=== PATIENT | male | born 1970 | race Caucasian/White ===

== ENCOUNTER 2017-04-16 09:22 | Inpatient (IN) | payer BC ==
[2017-04-13 08:42] VITALS: BMI 46.6
[2017-04-16] MEDS ORDERED: fentaNYL CITRATE 250 MCG/5 ML VIAL ONE ×2 (15:01)
[2017-04-16] MEDS ORDERED: SUCCINYLCHOLINE CHLORIDE 200 MG/10 ML VIAL ONE (15:01)
[2017-04-16] MEDS ORDERED: ROCURONIUM BROMIDE 50 MG/5 ML VIAL ONE (15:02)
[2017-04-16] MEDS ORDERED: MIDAZOLAM HCL 2 MG/2 ML SINGLE DOSE VIAL ONE ×4 (15:02→16:11)
[2017-04-16] MEDS ORDERED: PROPOFOL 20 ML ONE ×6 (15:06→16:38)
[2017-04-16] MEDS ORDERED: SODIUM CHLORIDE 0.9% P/F 10 ML VIAL IJ ONE ×2 (16:06→17:00)
[2017-04-16] MEDS ORDERED: ceFAZolin SODIUM 1 GM VIAL ONE (16:06)
[2017-04-16] MEDS ORDERED: THROMBIN (BOVINE) 5,000 UNIT VIAL TP ONE ×2 (16:16→16:23)
[2017-04-16] MEDS ORDERED: LIDOCAINE HCL/PF 2% SDV 5ML VIAL ONE (16:35)
[2017-04-16] MEDS ORDERED: DEXAMETHASONE SOD PHOSPHATE 4 MG/1 ML VIAL ONE (16:52)
[2017-04-16] MEDS ORDERED: FLUMAZENIL 0.5 MG/5 ML VIAL ONE (17:00)
[2017-04-16] MEDS ORDERED: NALOXONE HCL 0.4 MG/ML VIAL ONE (17:00)
[2017-04-16] MEDS ORDERED: CYCLOBENZAPRINE HCL 10 MG TABLET (FP) PO PRN (17:57)
[2017-04-16] MEDS ORDERED: ACETAMINOPHEN 325 MG TABLET (FP) PO PRN (17:57)
--- NOTE | 2017-04-16 17:57 | PN ---
Progress Note (short form) - Note Progress Note: Case cancelled. Pt. positioned supine on the operating room table. General anaesthesia administered. Upon assessment of the anterior cervical spine for incision placement planning, the patient's morbid obesity compromised the potential to safely perform the planned procedure. The patient was awoken and transferred to recovery room in stable condition. A long conversation was held with the patient and OR and nursing staff to explain the difficulty of the situation. The patient is myelopathic and has been battling progressive neurological decline. While I indicated the patient for surgery, believing that I could safely perform an anterior surgical approach to the cervical spine, upon positioning on the OR table, this was not the case. His morbid obesity compromised my surgical plan and the patient's safety. I have apologized to the hospital and to the patient.
[2017-04-16 19:16] VITALS: PULSE 62
[2017-04-16 19:18] VITALS: BP 134/82; TEMP 98.5
[2017-04-16] MEDS ORDERED: NAPROXEN 500 MG TABLET (FP) PO SCH (22:00)
== END 2017-04-16 19:40 | disposition home or self-care (01) | DRG 552 ==
LOC: JSAMEDAYSX 09:22 → EDSTATUS 11:00
PROVIDERS: ADMIT Orthopaedic Surgery Orthopaedic Surgery of the Spine; ATTEND Orthopaedic Surgery Orthopaedic Surgery of the Spine
DX: M47.12 Other spondylosis with myelopathy, cervical region (principal); Z68.42 Body mass index [BMI] 45.0-49.9, adult; R53.1 Weakness; E66.01 Morbid (severe) obesity due to excess calories; G47.39 Other sleep apnea; Z53.8 Procedure and treatment not carried out for other reasons; Z87.891 Personal history of nicotine dependence
CPT/HCPCS: 86850; 86900; 86901; 94760

== ENCOUNTER 2017-09-03 09:04 | Inpatient (IN) | payer BC ==
[2017-09-03] MEDS ORDERED: fentaNYL CITRATE 250 MCG/5 ML VIAL ONE ×2 (16:10→21:53)
[2017-09-03] MEDS ORDERED: TRANEXAMIC ACID 1000 MG/10 ML VIAL ONE (16:11)
[2017-09-03] MEDS ORDERED: LIDOCAINE HCL/PF 2% SDV 5ML VIAL ONE (16:11)
[2017-09-03] MEDS ORDERED: PROPOFOL 20 ML ONE ×22 (16:11→19:37)
[2017-09-03] MEDS ORDERED: VANCOMYCIN 1,000 MG VIAL (RESTRICTED TO ID ONLY) ONE (16:11)
[2017-09-03] MEDS ORDERED: ONDANSETRON 4 MG/2 ML VIAL ONE ×2 (16:11→20:20)
[2017-09-03] MEDS ORDERED: ceFAZolin SODIUM 1 GM VIAL ONE ×3 (16:11→22:29)
[2017-09-03] MEDS ORDERED: MIDAZOLAM HCL 2 MG/2 ML SINGLE DOSE VIAL ONE (16:11)
[2017-09-03] MEDS ORDERED: DEXAMETHASONE SOD PHOSPHATE 4 MG/1 ML VIAL ONE (16:11)
[2017-09-03] MEDS ORDERED: SUCCINYLCHOLINE CHLORIDE 200 MG/10 ML VIAL ONE (16:11)
[2017-09-03] MEDS ORDERED: HEPARIN NA (PORCINE) 5,000 UNITS/ML 1ML VIAL ONE (16:37)
[2017-09-03] MEDS ORDERED: VANCOMYCIN 1,000 MG VIAL (RESTRICTED TO ID ONLY) IVPB ONE (16:40)
[2017-09-03] MEDS ORDERED: THROMBIN (BOVINE) 5,000 UNIT VIAL TP ONE ×2 (17:04→21:03)
[2017-09-03] MEDS ORDERED: ONDANSETRON 4 MG/2 ML VIAL IVPUSH PRN ×2 (17:31→20:50)
[2017-09-03] MEDS ORDERED: ACETAMINOPHEN 325 MG TABLET (FP) PO PRN (17:34)
[2017-09-03] MEDS ORDERED: LACTATED RINGERS SOLUTION 1,000 ML IV SCH (17:45)
[2017-09-03] MEDS ORDERED: ceFAZolin SODIUM 1 GM VIAL IVPB ONE (18:28)
--- NOTE | 2017-09-03 20:39 | OP ---
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 C5 Corpectomy. 2. C4 and C6 Partial corpectomy. 3. C4/5 C5/6 Discectomy. 4. C4to C6 Optimesh cage with autologous bone graft. 5. C4to C6 Plating Slimplicity Surgeon: Burt Levy Publicity Consultant: Bertin Levy Anesthesiologist/PHYSICAL THERAPY AIDES TEACHER: Heath Tse Anesthesia: General Specimens Removed: Disc C4/5 C5/6 Operative Report Dictated: Yes
[2017-09-03] MEDS ORDERED: CYCLOBENZAPRINE HCL 10 MG TABLET (FP) PO PRN (20:41)
--- NOTE | 2017-09-03 20:50 | PN ---
Progress Note (short form) - Note Progress Note: 47M s/p C5 corpectomy & C4-C7 anterior cervical decompression & instrumented fusion POD #0. -Admit to ICU for airway monitoring. -Pain control. -DVT PPx: Mechanical only (SCD's, LOIS's). -Incentive spirometry. -Elevate head of bed 60 degrees or as tolerated. -Liquid diet; advance as tolerated (Soft then regular). -Miranda-op antibiotics. -PT/OT/Rehab, OOB. -WBAT B/L UE & LE. -Care per medical hospitalist team. -d/c Jacqueline tomorrow morning. -Will follow. -Discharge planning. Burt Levy MD (Orthopaedic Surgery).
[2017-09-03] MEDS ORDERED: PROPOFOL 1,000,000 MCG/100 ML VIAL ONE (21:53)
[2017-09-03] MEDS ORDERED: ceFAZolin 2 GRAM PREMIX BAG IVPB SCH (22:00)
[2017-09-03] MEDS: FENTANYL INJECTION 500 MCG in DEXTROSE 5%-WATER - 90 ML IVPB SCH (22:05)
[2017-09-03] MEDS ORDERED: PROPOFOL 1,000,000 MCG/100 ML VIAL IVPB SCH (23:00)
--- NOTE | 2017-09-03 23:33 | CONSULT ---
Consult Consult Specialty:: Critical Care/Pulmonary Medicine Reason for Consultation:: s/p C5 corpectomy & C4-C7 ACDF - History of Present Illness Chief Complaint: neck pain History of Present Illness: Mr. Zamudio is a 47yo male s/p C5 corpectomy & C4-C7 ACDF, POD #0, who in PACU was unable to be extubated, transferred to ICU intubated for monitoring. Briefly, Mr. Zamudio had C4/5, C5/6, C5 stenosis with spondylogenic myelopathy. He underwent C5 corpectomy, C4 & C6 partial corpectomy, C4/5 & C5/6 discectomy, C4 to C6 Optimesh cage with autologous bone graft, and C4-6 plating Slimplicity. He is now POD #0. In the PACU, sedation was weaned off but as per report, patient did not wake up enough to allow for extubation. Thereafter, he was found to be agitated and resedated on Propofol and Fentanyl. Transfered to ICU for further monitoring. Arrived to ICU intubated with initial vitals HR 61, BP 130/75, RR 20, and O2sat 96%. Sedated on Fent gtt @ 40mcg/hr and Prop gtt at 40mcg/kg/min. Initial vent settings SIMV 12/500/60/5. As per report, anesthesia requested patient remain on SIMV. IBW calculated ~70k. Vent adjusted to 6cc/kg = TV 420. Decreased Propofol gtt for goal RAAS 0. Previous CXR reviewed - ETT high so advance 2cm with repeat CXR pending. Plan for hopeful extubation in am. - History Source History Provided By: Medical Record Limitations to Obtaining History: Intubated - Alcohol/Substance Use Hx Alcohol Use: No - Smoking History Smoking history: Never smoked Home Medications - Allergies Allergies/Adverse Reactions: Allergies Allergy/AdvReac Type Severity Reaction Status Date / Time hydrocodone AdvReac Intermediate Nausea Verified 09/03/17 10:11 oxycodone AdvReac Intermediate Nausea Verified 09/03/17 10:11 - Home Medications Home Medications: Ambulatory Orders Cyclobenzaprine HCl [Flexeril 10 mg] 10 mg PO BID PRN 04/13/17 Naproxen [Naprosyn -] 500 mg PO BID 04/13/17 Acetaminophen [Tylenol] 650 mg PO PRN PRN 04/16/17 Loratadine [Claritin] 10 mg PO PRN PRN 09/03/17 Review of Systems Unable to obtain ROS, reason: 2/2 intubation & sedated Physical Exam Vital Signs: Vital Signs Temperature 97.6 F 09/03/17 21:41 Pulse Rate 61 09/03/17 23:00 Respiratory Rate 20 09/03/17 23:00 Blood Pressure 118/66 09/03/17 23:00 O2 Sat by Pulse Oximetry (%) 98 09/03/17 23:00 Constitutional: Yes: Obese Eyes: Yes: Conjunctiva Clear, PERRL (near pinpoint, +reactive bilaterally) HENT: Yes: Other (intubated) Neck: Yes: Other (anterior neck dsg c/d/i) Cardiovascular: Yes: Regular Rate and Rhythm Respiratory: Yes: CTA Bilaterally Gastrointestinal: Yes: Normal Bowel Sounds, Soft, Abdomen, Obese Renal/: Yes: Falcon Present Edema: No Peripheral Pulses WNL: Yes Wound/Incision: Yes: Clean/Dry Neurological: Yes: Other (sedated) Imaging - Results Chest X-ray: Image Reviewed (CXR 09/03 @ 2247: ETT too high - advanced 2cm with repeat CXR pending. ? LLL infiltrate) Assessment/Plan Mr. Zamudio is a 47yo male s/p C5 corpectomy & C4-C7 ACDF, POD #0, who in PACU was unable to be extubated, transferred to ICU intubated for monitoring. Plan: -Admitted to ICU for close monitoring and vent weaning -Close neurovascular monitoring -Plan for hopeful extubation in am -Wean sedation for RASS goal 0 -Adjusted vent for TVs @ 6cc/kg -Advanced ETT, will f/u repeat CXR -Fent gtt and IVPs as needed for pain control -Will transition to po opioids once extubated -NPO for now -D/c falcon once extubated -DVT ppx: venodynes, hold off on SQ Hep -GI ppx: not indicated unless ongoing resp failure Jennifer Dawson ACNP-BC CC time: 30minutes
[2017-09-04] MEDS: ACETAMINOPHEN 325 MG TABLET (FP) PO SCH ×4 (00:34→18:03)
[2017-09-04] MEDS: CEFAZOLIN 2 GM/D5W 2 GM/50 ML ML IVPB SCH ×3 (00:34→08:45)
[2017-09-04] MEDS: DOCUSATE SODIUM 100 MG CAPSULE (FP) PO SCH ×3 (00:35→21:13)
[2017-09-04] MEDS: FENTANYL INJECTION 500 MCG in DEXTROSE 5%-WATER - 90 ML IVPB SCH (00:35)
[2017-09-04] MEDS: LACTATED RINGERS SOLUTION 1,000 ML IV SCH ×3 (00:36→21:12)
[2017-09-04] MEDS ORDERED: fentaNYL CITRATE 250 MCG/5 ML VIAL ONE (01:23)
[2017-09-04 06:26] LABS: HEMATOCRIT 39.6 % (35.4-49); HEMOGLOBIN 13.9 GM/dL (11.7-16.9); MCH 31.2 pg (25.7-33.7); MCHC 35.2 g/dl (32.0-35.9); MEAN CELL VOLUME 88.7 fl (80-96); MEAN PLT VOLUME 8.3 fl (7.5-11.1); PLATELET COUNT 191 K/MM3 (134-434); RBC 4.47 M/mm3 (4.00-5.60); RDW 12.3 % (11.9-15.9); WHITE BLOOD COUNT 8.6 K/mm3 (4.0-10.0)
[2017-09-04 06:49] LABS: ANION GAP 5 (8-16); BLOOD UREA NITROGEN 14 mg/dL (7-18); CALCIUM 8.1 mg/dL (8.5-10.1); CHLORIDE 107 mmol/L (98-107); CO2 30 mmol/L (21-32); GLUCOSE,RANDOM 140 mg/dL (74-106); POTASSIUM 4.7 mmol/L (3.5-5.1); SODIUM 142 mmol/L (136-145)
--- NOTE | 2017-09-04 08:58 | PN ---
Progress Note, Physician - Current Medication List Current Medications: Active Medications Acetaminophen (Tylenol -) 650 mg PO Q4H PRN PRN Reason: FEVER Acetaminophen (Tylenol -) 650 mg PO Q6HPO [facility] Last Admin: 09/04/17 06:08 Dose: Not Given Cyclobenzaprine HCl (Flexeril -) 10 mg PO BID PRN PRN Reason: PAIN Docusate Sodium (Colace -) 100 mg PO BID [facility] Last Admin: 09/04/17 00:35 Dose: Not Given Hydromorphone HCl (Dilaudid -) 2 mg PO Q4H PRN PRN Reason: PAIN LEVEL 1-5 Hydromorphone HCl (Dilaudid -) 4 mg PO Q4H PRN PRN Reason: PAIN LEVEL 6-10 Lactated Ringer's (Lactated Ringers Solution) 1,000 mls @ 125 mls/hr IV ASDIR [facility] Last Admin: 09/04/17 08:47 Dose: 125 mls/hr Cefazolin Sodium/Dextrose (Ancef 2 Gm Premixed Ivpb -) 2 gm in 50 mls @ 100 mls /hr IVPB Q6H-IV [facility] Stop: 09/04/17 09:29 Last Admin: 09/04/17 08:45 Dose: 100 mls/hr Propofol (Diprivan -) 1,000,000 mcg in 100 mls @ 4.286 mls/hr IVPB TITR [facility]; 5 MCG/KG/MIN PRN Reason: Protocol Last Titration: 09/04/17 01:00 Dose: 20 mcg/kg/min, 17.146 mls/hr Fentanyl 500 mcg/ Dextrose 100 mls @ 5 mls/hr IVPB TITR [facility]; 25 MCG/HR PRN Reason: Protocol Stop: 09/06/17 22:59 Last Admin: 09/04/17 00:35 Dose: 5 mls/hr Lorazepam (Ativan Injection -) 1 mg IVPUSH TID PRN PRN Reason: BACK PAIN Ondansetron HCl (Zofran Injection) 4 mg IVPUSH Q6H PRN PRN Reason: NAUSEA AND/OR VOMITING - Objective Vital Signs: Vital Signs Temperature 98.7 F 09/04/17 06:00 Pulse Rate 51 L 09/04/17 06:00 Respiratory Rate 16 09/04/17 08:00 Blood Pressure 108/64 09/04/17 08:00 O2 Sat by Pulse Oximetry (%) 93 L 09/04/17 00:06 Constitutional: Yes: Obese Eyes: Yes: EOM Intact HENT: Yes: Atraumatic, Normocephalic Labs: CBC, BMP 09/04/17 05:55 09/04/17 05:55
--- NOTE | 2017-09-04 10:44 | OP ---
DATE OF OPERATION: 09/03/2017 SURGEON: Burt Levy MD PROGRAMMING DIRECTOR: Bertin Levy MD PREOPERATIVE DIAGNOSIS: C4-C5, C5 and C5-C6 spinal stenosis with cervical spondylogenic myelopathy and kyphosis. POSTOPERATIVE DIAGNOSIS: C4-C5, C5 and C5-C6 spinal stenosis with cervical spondylogenic myelopathy and kyphosis. OPERATION PERFORMED: 1. C5 corpectomy. 2. Diskectomy C4-C5 and C5-C6. 3. Partial corpectomy C4, partial corpectomy C6. 4. Anterior arthrodesis with autologous bone graft. 5. OptiMesh cage. 6. Anterior plating (Precision instrumentation). ANESTHESIA: General. ANTIBIOTICS GIVEN: Kefzol 2 g, vancomycin 1 g and Decadron 10 mg given preoperatively. DESCRIPTION OF PROCEDURE: A time-out was called. Imaging was evaluated for intraoperative evaluation. A complex case. Difficult because of the patient's size, BMI over 40, but indication for surgery due to progressive neurological weakness and cervical spondylogenic myelopathy. With the patient in the supine position, a large bolster was placed behind the scapulae. The shoulders were taped and the neck extended. Prior to this, neuromonitoring numbers were run through him and found at this level to be well maintained. After positioning the patient into extension, there was no change in the numerical numbers noted. The incision was made at the cricothyroid interval. The platysma was transected. The anterior jugular veins were dissected and ligated with number 1 Vicryl. These were large veins. Because of the fat thickness of the neck, the investing nerve fascia was opened with finger dissection. The planes between the viscera and vessels were identified on the right-hand side. With finger dissection, the soft tissue visceral elements were retracted from right to left. A Cloward handheld retractor was placed on either side of the developed plane, where the longus coli was readily visible. A 90-bend, 18-gauge needle was placed in the C4-C5 disk. An x-ray was taken to verify the levels for dissection. A unipolar Bovie was utilized to clear the longus coli off the vertebral bodies. The disks at C4-C5 and C5-C6 were transected and removed, that is, ligated off the bone bed. Using curettes, the disk material was taken off the interdisk space. A matchstick rene tip florencia was utilized to carve 2 channels into the vertebral body of C5 and then Lexsell rongeurs delivered the bone left behind between the 2 channels for the autologous bone grafting to be inserted into the cage. Using numbers 1, 2 and 3 Kerrison rongeurs as well as a 40-mm rough rene tipped florencia, the endplates were prepared at C4 and the endplates at C6 likewise prepared. This necessitated a partial corpectomy at the C4-C5 and C6 levels to also ensure that the undercutting of the endplate and the disk brought about complete decompression accordingly. CellSaver blood was utilized. There was extensive bleeding of the vertebral bodies. The amount of blood removed was about 300 mL was lost and about 120 mL in the CellSaver was given back to the patient. Once this had been performed and all hemostasis was achieved and a complete decompression of the cord, it must be noted that the dura was actually adherent to some parts of the cord and dissected free of the cord with a [place], and lifting the actual posterior longitudinal ligament with a pituitary rongeur, a plane was created and the entire posterior longitudinal ligament was resected, thus to complete freeing of the cord. Extensive disk prolapse was noted, particularly at C4-C5. An OptiMesh cage was fitted into the space. This was measured using osteotomes to help gauge the exact length of the interbody space. The cage was tamped into position. Two [place] pins had been placed, one in C4 and one in C6. Gentle distraction of the space. Once the cage had been inserted, being solidly inserted at the level, the [place] pins were removed and the holes in the bone filled with bone wax. A size 37 slim-fit Precision plate was inserted. The screws were 14-mm screws, self tapping, fixed into the C4 and C6 vertebral bodies. The C6 screws were fixed into the endplate bone, giving the best fixation and position. The wounds were thoroughly lavaged. The locking devices were placed onto the screws. Verification with lateral and AP x-rays revealed excellent positioning of the plate. Closure of the investing layer fascia with 2-0 Vicryl, subcutaneous with 2-0 Vicryl, and the skin with 0 Monocryl and Steri-Strips. Overall, an extremely difficult case because of the size of the patient, the depth of the wound and the adherence of the posterior longitudinal ligament to the dura, necessitating meticulous freeing of this, this was hard thickened tissue that if left behind would have restenosed the entire canal and this operation would have been a failure. Overall, the patient has done well. No neuromonitoring abnormalities and no excessive bone loss. MD PARAG Mariee/[id number]
--- NOTE | 2017-09-04 11:24 | PN ---
Progress Note (short form) - Note Progress Note: Subjective: The patient was seen and examined at the bedside, he has complaints of feeling uncomfortable with bed position. He is also reporting pain to his neck Extubated this morning Current Medications Generic Name Dose Route Start Last Admin Trade Name Freq PRN Reason Stop Dose Admin Acetaminophen 650 mg 09/03/17 17:34 Tylenol - PO Q4H PRN FEVER Acetaminophen 650 mg 09/03/17 21:00 09/04/17 06:08 Tylenol - PO Not Given Q6HPO [facility] Cyclobenzaprine HCl 10 mg 09/03/17 20:41 Flexeril - PO BID PRN PAIN Docusate Sodium 100 mg 09/03/17 22:00 09/04/17 10:28 Colace - PO Not Given BID [facility] Hydromorphone HCl 2 mg 09/03/17 17:32 Dilaudid - PO Q4H PRN PAIN LEVEL 1-5 Hydromorphone HCl 4 mg 09/03/17 17:32 Dilaudid - PO Q4H PRN PAIN LEVEL 6-10 Lactated Ringer's 1,000 mls @ 125 mls/hr 09/03/17 21:00 09/04/17 08:47 Lactated Ringers Solution IV 125 mls/hr ASDIR [facility] Administration Propofol 1,000,000 mcg in 100 mls @ 4.286 mls/hr 09/03/17 23:00 09/04/17 01: 00 Diprivan - IVPB 20 mcg/kg/min TITR [facility] 17.146 mls/hr Protocol Titration 5 MCG/KG/MIN Fentanyl 500 mcg/ Dextrose 100 mls @ 5 mls/hr 09/03/17 23:00 09/04/17 00:35 IVPB 09/06/17 22:59 5 mls/hr TITR [facility] Administration Protocol 25 MCG/HR Lorazepam 1 mg 09/03/17 20:54 Ativan Injection - IVPUSH TID PRN BACK PAIN Ondansetron HCl 4 mg 09/03/17 17:31 Zofran Injection IVPUSH Q6H PRN NAUSEA AND/OR VOMITING Objective: Vital Signs Period Temp Pulse Resp BP Sys/Heard Pulse Ox Last 24 Hr 97.6 F-99.2 F 48-87 16-26 108-144/64-95 91-100 Physical Exam: General: Morbidly obese, NAD, A&Ox3 HEENT: Anterior neck dressing, c/d/i Lungs: CTA bilaterally anteriorly Heart: RRR, S1S2 Abd: Soft, non-tender, non-distended Ext: Warm, well-perfused CBCD WBC 8.6 K/mm3 (4.0-10.0) 09/04/17 05:55 RBC 4.47 M/mm3 (4.00-5.60) 09/04/17 05:55 Hgb 13.9 GM/dL (11.7-16.9) 09/04/17 05:55 Hct 39.6 % (35.4-49) 09/04/17 05:55 MCV 88.7 fl (80-96) 09/04/17 05:55 MCHC 35.2 g/dl (32.0-35.9) 09/04/17 05:55 RDW 12.3 % (11.9-15.9) 09/04/17 05:55 Plt Count 191 K/MM3 (134-434) 09/04/17 05:55 MPV 8.3 fl (7.5-11.1) 09/04/17 05:55 CMP Sodium 142 mmol/L (136-145) 09/04/17 05:55 Potassium 4.7 mmol/L (3.5-5.1) 09/04/17 05:55 Chloride 107 mmol/L (98-107) 09/04/17 05:55 Carbon Dioxide 30 mmol/L (21-32) 09/04/17 05:55 Anion Gap 5 (8-16) L 09/04/17 05:55 BUN 14 mg/dL (7-18) 09/04/17 05:55 Creatinine 1.0 mg/dL (0.7-1.3) 09/04/17 05:55 Random Glucose 140 mg/dL (74-106) H 09/04/17 05:55 Calcium 8.1 mg/dL (8.5-10.1) L 09/04/17 05:55 Assessment: This is a 47 year old male with PMHx of obesity s/p sleeve gastroplasty, hernia repair, cervical spinal stenosis, who is s/p spinal surgery on 09/03/17 Plan: 1) S/p C5 corpectomy. C4 and C6 partial corpectomy, C4/5 C5/6 discectomy, C4 to C6 optimesh cage with autologous bone graft, C4 to C6 plating slimplicity - POD #1 - Extubated this AM, doing well - Pain control - Start liquid diet and advance as tolerated - Received Cefazolin post-op - PT - Elevate head of bed 60 degrees - Incentive spirometer - Appreciate ortho note from 09/03/17 2) F/E/N: - CL diet, advance as tolerated - Monitor electrolytes 3) Prophylaxis: - SCDs only, no chemical DVT prophylaxis per ortho - PT - Incentive spirometer 4) Dispo - Requires continue inpatient care CODE STATUS: FULL CODE Visit type - Emergency Visit Emergency Visit: Yes ED Registration Date: 09/03/17 Care time: The patient presented to the Emergency Department on the above date and was hospitalized for further evaluation of their emergent condition. - New Patient This patient is new to me today: Yes Date on this admission: 09/04/17 - Critical Care Critical Care patient: No
--- NOTE | 2017-09-04 12:02 | PN ---
Physical Exam: SUBJECTIVE: Patient awake, alert and oriented, c/o sore throat, denies any chest pain, shortness of breath, abdominal pain. OBJECTIVE: General: Obese, alert, A&O x3 CV: S1/S2, RRR, no M/R/G Respiratory: B/L Abdomen: soft, non-tender, (+) bowel sounds Extremities: 2+ DP pulses, no edema, cords Vital Signs Period Temp Pulse Resp BP Sys/Heard Pulse Ox Last 24 Hr 97.6 F-99.2 F 48-87 16-26 108-144/64-95 91-100 Laboratory Results - last 24 hr 09/04/17 09/04/17 05:55 05:55 WBC 8.6 RBC 4.47 Hgb 13.9 Hct 39.6 MCV 88.7 MCH 31.2 MCHC 35.2 RDW 12.3 Plt Count 191 MPV 8.3 Sodium 142 Potassium 4.7 Chloride 107 Carbon Dioxide 30 Anion Gap 5 L BUN 14 Creatinine 1.0 Random Glucose 140 H Calcium 8.1 L Active Medications Generic Name Dose Route Start Last Admin Trade Name Freq PRN Reason Stop Dose Admin Acetaminophen 650 mg 09/03/17 17:34 Tylenol - PO Q4H PRN FEVER Acetaminophen 650 mg 09/03/17 21:00 09/04/17 06:08 Tylenol - PO Not Given Q6HPO [facility] Cyclobenzaprine HCl 10 mg 09/03/17 20:41 Flexeril - PO BID PRN PAIN Docusate Sodium 100 mg 09/03/17 22:00 09/04/17 10:28 Colace - PO Not Given BID [facility] Hydromorphone HCl 2 mg 09/03/17 17:32 Dilaudid - PO Q4H PRN PAIN LEVEL 1-5 Hydromorphone HCl 4 mg 09/03/17 17:32 Dilaudid - PO Q4H PRN PAIN LEVEL 6-10 Lactated Ringer's 1,000 mls @ 125 mls/hr 09/03/17 21:00 09/04/17 08:47 Lactated Ringers Solution IV 125 mls/hr ASDIR [facility] Administration Fentanyl 500 mcg/ Dextrose 100 mls @ 5 mls/hr 09/03/17 23:00 09/04/17 00:35 IVPB 09/06/17 22:59 5 mls/hr TITR [facility] Administration Protocol 25 MCG/HR Lorazepam 1 mg 09/03/17 20:54 Ativan Injection - IVPUSH TID PRN BACK PAIN Ondansetron HCl 4 mg 09/03/17 17:31 Zofran Injection IVPUSH Q6H PRN NAUSEA AND/OR VOMITING ASSESSMENT/PLAN: 47 year old male with a PMH of MARCELO, POD#1 for C5 corpectomy and C4-C7 ACDF. RESPIRATORY: - Extubated today (09/04) - SpO2 96% on RA - CLTA B/L - CPAP machine w/patient FEN/PPZ - LR @ 125 mls/hr - Zofran PRN - Colace for bowel regimen - Phillips d/c today (09/04) DISPO -stable for transfer to inpatient medicine floor or discharge as per surgery and primary Visit type - Emergency Visit Emergency Visit: No - New Patient This patient is new to me today: Yes Date on this admission: 09/04/17 - Critical Care Critical Care patient: No
--- NOTE | 2017-09-04 12:39 | PN ---
Teaching Attending Note Name of Resident: Coty Esteban ATTENDING PHYSICIAN STATEMENT I saw and evaluated the patient. I reviewed the resident's note and discussed the case with the resident. I agree with the resident's findings and plan as documented. SUBJECTIVE: Patient seen and examined in the ICU. Awake and alert on AC Mode of vent. 40% FiO2. No pressors. Intake & Output 09/01/17 09/02/17 09/03/17 09/04/17 23:59 23:59 23:59 23:59 Intake Total 1925 1870 Output Total 850 400 Balance 1075 1470 Weight 324 lb 7 oz Last Vital Signs Temp Pulse Resp BP Pulse Ox 98.6 F 62 18 135/83 96 09/04/17 10:00 09/04/17 12:07 09/04/17 12:07 09/04/17 12:07 09/04/17 11:02 Active Medications Acetaminophen (Tylenol -) 650 mg PO Q4H PRN PRN Reason: FEVER Acetaminophen (Tylenol -) 650 mg PO Q6HPO [facility] Last Admin: 09/04/17 06:08 Dose: Not Given Cyclobenzaprine HCl (Flexeril -) 10 mg PO BID PRN PRN Reason: PAIN Docusate Sodium (Colace -) 100 mg PO BID [facility] Last Admin: 09/04/17 10:28 Dose: Not Given Hydromorphone HCl (Dilaudid -) 2 mg PO Q4H PRN PRN Reason: PAIN LEVEL 1-5 Hydromorphone HCl (Dilaudid -) 4 mg PO Q4H PRN PRN Reason: PAIN LEVEL 6-10 Lactated Ringer's (Lactated Ringers Solution) 1,000 mls @ 125 mls/hr IV ASDIR [facility] Last Admin: 09/04/17 08:47 Dose: 125 mls/hr Fentanyl 500 mcg/ Dextrose 100 mls @ 5 mls/hr IVPB TITR [facility]; 25 MCG/HR PRN Reason: Protocol Stop: 09/06/17 22:59 Last Admin: 09/04/17 00:35 Dose: 5 mls/hr Lorazepam (Ativan Injection -) 1 mg IVPUSH TID PRN PRN Reason: BACK PAIN Ondansetron HCl (Zofran Injection) 4 mg IVPUSH Q6H PRN PRN Reason: NAUSEA AND/OR VOMITING Constitutional: Yes: Intubated, awake, and following commands Eyes: Yes: Conjunctiva Clear, PERRL HENT: Yes: Other (intubated) Neck: Yes: Other (anterior neck dsg c/d/i) Cardiovascular: Yes: Regular Rate and Rhythm Respiratory: Yes: CTA Bilaterally Gastrointestinal: Yes: Normal Bowel Sounds, Soft, Abdomen, Obese Renal/: Yes: Phillips Present Edema: No Peripheral Pulses WNL: Yes Wound/Incision: Yes: Clean/Dry Neurological: Yes: non-focal Laboratory Results - last 24 hr 09/04/17 09/04/17 05:55 05:55 WBC 8.6 RBC 4.47 Hgb 13.9 Hct 39.6 MCV 88.7 MCH 31.2 MCHC 35.2 RDW 12.3 Plt Count 191 MPV 8.3 Sodium 142 Potassium 4.7 Chloride 107 Carbon Dioxide 30 Anion Gap 5 L BUN 14 Creatinine 1.0 Random Glucose 140 H Calcium 8.1 L Assessment/Plan POD #1 C5 Corpectomy & C4-C7 ACDF Morbid Obesity OSAS Plan: Wean to extubate Neuro checks Pain control Incentive Spirometry VTE prophylaxis PO as tolerated once extubated Dr Dotson Critical care time spent in reviewing chart, evaluating patient and formulating plan - 36 minutes.
--- NOTE | 2017-09-04 16:17 | PN ---
Progress Note, Physician Chief Complaint: day #1 s/p c-spine fusion - Current Medication List Current Medications: Active Medications Acetaminophen (Tylenol -) 650 mg PO Q4H PRN PRN Reason: FEVER Acetaminophen (Tylenol -) 650 mg PO Q6HPO [facility] Last Admin: 09/04/17 06:08 Dose: Not Given Cyclobenzaprine HCl (Flexeril -) 10 mg PO BID PRN PRN Reason: PAIN Docusate Sodium (Colace -) 100 mg PO BID [facility] Last Admin: 09/04/17 10:28 Dose: Not Given Hydromorphone HCl (Dilaudid -) 2 mg PO Q4H PRN PRN Reason: PAIN LEVEL 1-5 Hydromorphone HCl (Dilaudid -) 4 mg PO Q4H PRN PRN Reason: PAIN LEVEL 6-10 Lactated Ringer's (Lactated Ringers Solution) 1,000 mls @ 125 mls/hr IV ASDIR [facility] Last Admin: 09/04/17 08:47 Dose: 125 mls/hr Lorazepam (Ativan Injection -) 1 mg IVPUSH TID PRN PRN Reason: BACK PAIN Ondansetron HCl (Zofran Injection) 4 mg IVPUSH Q6H PRN PRN Reason: NAUSEA AND/OR VOMITING - Objective Vital Signs: Vital Signs Temperature 99.2 F 09/04/17 14:00 Pulse Rate 68 09/04/17 14:00 Respiratory Rate 18 09/04/17 14:00 Blood Pressure 127/73 09/04/17 14:00 O2 Sat by Pulse Oximetry (%) 96 09/04/17 11:02 Labs: CBC, BMP 09/04/17 05:55 09/04/17 05:55 Assessment/Plan Doing well in ICU, OOB to chair. Minimal pain. Continue current treatment
[2017-09-05] MEDS: ACETAMINOPHEN 325 MG TABLET (FP) PO SCH ×3 (06:02→12:12)
[2017-09-05 07:19] LABS: ALBUMIN 3.7 g/dl (3.4-5.0); ANION GAP 4 (8-16); BILIRUBIN,TOTAL 1.2 mg/dL (0.2-1.0); BLOOD UREA NITROGEN 10 mg/dL (7-18); CHLORIDE 105 mmol/L (98-107); CO2 33 mmol/L (21-32); GLUCOSE,RANDOM 104 mg/dL (74-106); POTASSIUM 4.4 mmol/L (3.5-5.1); SGOT/AST 23 U/L (15-37); SGPT/ALT 17 U/L (12-78); SODIUM 142 mmol/L (136-145); TOT PROT 6.6 g/dl (6.4-8.2)
[2017-09-05 07:20] LABS: ALK PHOS 61 U/L (45-117)
[2017-09-05 07:47] LABS: HEMATOCRIT 41.8 % (35.4-49); HEMOGLOBIN 14.8 GM/dL (11.7-16.9); MCH 31.6 pg (25.7-33.7); MCHC 35.3 g/dl (32.0-35.9); MEAN CELL VOLUME 89.5 fl (80-96); MEAN PLT VOLUME 8.4 fl (7.5-11.1); PLATELET COUNT 202 K/MM3 (134-434); RBC 4.67 M/mm3 (4.00-5.60); RDW 12.5 % (11.9-15.9); WHITE BLOOD COUNT 10.7 K/mm3 (4.0-10.0)
[2017-09-05] MEDS: HYDROmorphone HCL 2 MG TABLET PO PRN ×2 (09:38→15:23)
[2017-09-05] MEDS: DOCUSATE SODIUM 100 MG CAPSULE (FP) PO SCH (09:39)
--- NOTE | 2017-09-05 11:43 | PN ---
Physical Exam: SUBJECTIVE: Patient seen and examined NO acute events overnight; Extubated yesterday; sating 97% on RA OOB in chair tolerated clear diet Curring c/o sore throat OBJECTIVE: Vital Signs Period Temp Pulse Resp BP Sys/Heard Pulse Ox Last 24 Hr 99.0 F-99.9 F 55-68 14-24 115-135/70-83 96-100 GENERAL: The patient is awake, alert, and fully oriented,sitting in chair Neck: with dressing intact; no swelling; erythema; ecchymosis; LUNGS: Breath sounds equal, clear to auscultation bilaterally, no wheezes, no crackles, no accessory muscle use. HEART: Regular rate and rhythm, S1, S2 without murmur, rub or gallop. ABDOMEN: obese; +BS EXTREMITIES: 2+ pulses, warm, well-perfused, no edema. NEUROLOGICAL: Cranial nerves II through XII grossly intact. Normal speech, Laboratory Results - last 24 hr 09/05/17 09/05/17 05:40 05:40 WBC 10.7 H RBC 4.67 Hgb 14.8 Hct 41.8 MCV 89.5 MCH 31.6 MCHC 35.3 RDW 12.5 Plt Count 202 MPV 8.4 Sodium 142 Potassium 4.4 Chloride 105 Carbon Dioxide 33 H Anion Gap 4 L BUN 10 D Creatinine 1.0 Creat Clearance w eGFR > 60 Random Glucose 104 D Calcium 8.0 L Total Bilirubin 1.2 H AST 23 ALT 17 Alkaline Phosphatase 61 Total Protein 6.6 Albumin 3.7 Active Medications Generic Name Dose Route Start Last Admin Trade Name Freq PRN Reason Stop Dose Admin Acetaminophen 650 mg 09/03/17 17:34 Tylenol - PO Q4H PRN FEVER Acetaminophen 650 mg 09/03/17 21:00 09/05/17 06:02 Tylenol - PO 650 mg Q6HPO PARKER Administration Cyclobenzaprine HCl 10 mg 09/03/17 20:41 Flexeril - PO BID PRN PAIN Docusate Sodium 100 mg 09/03/17 22:00 09/05/17 09:39 Colace - PO 100 mg BID PARKER Administration Hydromorphone HCl 2 mg 09/03/17 17:32 09/05/17 09:38 Dilaudid - PO 2 mg Q4H PRN Administration PAIN LEVEL 1-5 Hydromorphone HCl 4 mg 09/03/17 17:32 Dilaudid - PO Q4H PRN PAIN LEVEL 6-10 Lactated Ringer's 1,000 mls @ 125 mls/hr 09/03/17 21:00 09/04/17 21:12 Lactated Ringers Solution IV Not Given ASDIR PARKER Lorazepam 1 mg 09/03/17 20:54 Ativan Injection - IVPUSH TID PRN BACK PAIN Ondansetron HCl 4 mg 09/03/17 17:31 Zofran Injection IVPUSH Q6H PRN NAUSEA AND/OR VOMITING ASSESSMENT/PLAN: This is a 47 year old male here post op C spine surgery. #POD #2 C5 Corpectomy & C4-C7 ACDF -OOB Chair -tolerating diet -pain control -PT -surgery recs appreciated #cxr with mild atelectatsis; -incentive spirometry #Morbid Obesity: -diet weight control #OSAS -cpap prn DVT ppl; heparin sq Disposition: stable to transfer to floors; pending surgery approval Visit type - Emergency Visit Emergency Visit: Yes ED Registration Date: 09/03/17 Care time: The patient presented to the Emergency Department on the above date and was hospitalized for further evaluation of their emergent condition. - New Patient This patient is new to me today: Yes Date on this admission: 09/05/17 - Critical Care Critical Care patient: Yes Total Critical Care Time (in minutes): 40 Critical Care Statement: The care of this patient involved high complexity decision making to prevent further life threatening deterioration of the patient 's condition and/or to evaluate & treat vital organ system(s) failure or risk of failure.
--- NOTE | 2017-09-05 11:56 | PN ---
Physical Exam: SUBJECTIVE: Patient seen and examined in ICU. He is oob to chair, no resp distress, has some discomfort with swallowing due to inflammation. Reports pain OBJECTIVE: Vital Signs Period Temp Pulse Resp BP Sys/Heard Pulse Ox Last 24 Hr 99.0 F-99.9 F 55-68 14-24 115-135/70-83 96-100 PE Neuro: alert, awake, cn 2-12intact HEENT: anterior neck dressing cdi tender, no erythema, drainage Pulm: CTAB CV: s1 s2 rrr Abd: s nt nd +bs Ext: no le edema Laboratory Results - last 24 hr 09/05/17 09/05/17 05:40 05:40 WBC 10.7 H RBC 4.67 Hgb 14.8 Hct 41.8 MCV 89.5 MCH 31.6 MCHC 35.3 RDW 12.5 Plt Count 202 MPV 8.4 Sodium 142 Potassium 4.4 Chloride 105 Carbon Dioxide 33 H Anion Gap 4 L BUN 10 D Creatinine 1.0 Creat Clearance w eGFR > 60 Random Glucose 104 D Calcium 8.0 L Total Bilirubin 1.2 H AST 23 ALT 17 Alkaline Phosphatase 61 Total Protein 6.6 Albumin 3.7 Active Medications Generic Name Dose Route Start Last Admin Trade Name Freq PRN Reason Stop Dose Admin Acetaminophen 650 mg 09/03/17 17:34 Tylenol - PO Q4H PRN FEVER Acetaminophen 650 mg 09/03/17 21:00 09/05/17 06:02 Tylenol - PO 650 mg Q6HPO PARKER Administration Cyclobenzaprine HCl 10 mg 09/03/17 20:41 Flexeril - PO BID PRN PAIN Docusate Sodium 100 mg 09/03/17 22:00 09/05/17 09:39 Colace - PO 100 mg BID PARKER Administration Heparin Sodium (Porcine) 5,000 unit 09/05/17 14:00 Heparin - SQ TID PARKER Hydromorphone HCl 2 mg 09/03/17 17:32 09/05/17 09:38 Dilaudid - PO 2 mg Q4H PRN Administration PAIN LEVEL 1-5 Hydromorphone HCl 4 mg 09/03/17 17:32 Dilaudid - PO Q4H PRN PAIN LEVEL 6-10 Lactated Ringer's 1,000 mls @ 125 mls/hr 09/03/17 21:00 09/04/17 21:12 Lactated Ringers Solution IV Not Given ASDIR PARKER Lorazepam 1 mg 09/03/17 20:54 Ativan Injection - IVPUSH TID PRN BACK PAIN Ondansetron HCl 4 mg 09/03/17 17:31 Zofran Injection IVPUSH Q6H PRN NAUSEA AND/OR VOMITING Assessment: 47 year old male with PMHx of obesity s/p sleeve gastroplasty, hernia repair, cervical spinal stenosis, here s/p spinal surgery on 09/03/17 Plan: 1. S/p C5 corpectomy. C4 and C6 partial corpectomy, C4/5 C5/6 discectomy, C4 to C6 optimesh cage with autologous bone graft, C4 to C6 plating slimplicity - Surgery 09/03/17 - Stable on RA - Stop fluids - Tolerating clears, can advance to soft for lunch - Pt had + BM, however not passing gas - Post op care per surgery 2. Prophylaxis: - SCDs only, no chemical DVT prophylaxis per ortho - PT - Incentive spirometer CODE STATUS: FULL CODE Visit type - Emergency Visit Emergency Visit: Yes ED Registration Date: 09/03/17 Care time: The patient presented to the Emergency Department on the above date and was hospitalized for further evaluation of their emergent condition. - New Patient This patient is new to me today: Yes Date on this admission: 09/05/17 - Critical Care Critical Care patient: No - Discharge Referral Referred to [facility] Med P.C.: No
[2017-09-05] MEDS ORDERED: oxyCODONE HCL 5 MG TABLET PO PRN (12:01)
--- NOTE | 2017-09-05 12:17 | PN ---
Teaching Attending Note Name of Resident: Jazmin Cool ATTENDING PHYSICIAN STATEMENT I saw and evaluated the patient. I reviewed the resident's note and discussed the case with the resident. I agree with the resident's findings and plan as documented. SUBJECTIVE: Patient seen and examined in the ICU. Remains extubated. Awake and alert on NC O2. Pain at surgical site. Reports some soreness/pain in his throat Intake & Output 09/02/17 09/03/17 09/04/17 09/05/17 23:59 23:59 23:59 23:59 Intake Total 1925 3170 1500 Output Total 850 400 Balance 1075 2770 1500 Weight 324 lb 7 oz 325 lb 2 oz Last Vital Signs Temp Pulse Resp BP Pulse Ox 99.2 F 61 22 115/72 100 09/05/17 10:00 09/05/17 11:07 09/05/17 11:07 09/05/17 11:07 09/05/17 06:12 Active Medications Acetaminophen (Tylenol -) 650 mg PO Q4H PRN PRN Reason: FEVER Acetaminophen (Tylenol -) 650 mg PO Q6HPO [facility] Last Admin: 09/05/17 12:12 Dose: 650 mg Cyclobenzaprine HCl (Flexeril -) 10 mg PO BID PRN PRN Reason: PAIN Docusate Sodium (Colace -) 100 mg PO BID [facility] Last Admin: 09/05/17 09:39 Dose: 100 mg Hydromorphone HCl (Dilaudid -) 2 mg PO Q4H PRN PRN Reason: PAIN LEVEL 1-5 Last Admin: 09/05/17 09:38 Dose: 2 mg Hydromorphone HCl (Dilaudid -) 4 mg PO Q4H PRN PRN Reason: PAIN LEVEL 6-10 Lorazepam (Ativan Injection -) 1 mg IVPUSH TID PRN PRN Reason: BACK PAIN Ondansetron HCl (Zofran Injection) 4 mg IVPUSH Q6H PRN PRN Reason: NAUSEA AND/OR VOMITING Oxycodone HCl (Roxicodone -) 5 mg PO Q4H PRN PRN Reason: PAIN LEVEL 1-5 Constitutional: Yes: Awake and alert, NAD Eyes: Yes: Conjunctiva Clear, PERRL HENT: Yes: Other (intubated) Neck: Yes: Other (anterior neck dsg c/d/i) Cardiovascular: Yes: Regular Rate and Rhythm Respiratory: Yes: CTA Bilaterally Gastrointestinal: Yes: Normal Bowel Sounds, Soft, Abdomen, Obese Renal/: Yes: Phillips Present Edema: No Peripheral Pulses WNL: Yes Wound/Incision: Yes: Clean/Dry Neurological: Yes: non-focal Laboratory Results - last 24 hr 09/05/17 09/05/17 05:40 05:40 WBC 10.7 H RBC 4.67 Hgb 14.8 Hct 41.8 MCV 89.5 MCH 31.6 MCHC 35.3 RDW 12.5 Plt Count 202 MPV 8.4 Sodium 142 Potassium 4.4 Chloride 105 Carbon Dioxide 33 H Anion Gap 4 L BUN 10 D Creatinine 1.0 Creat Clearance w eGFR > 60 Random Glucose 104 D Calcium 8.0 L Total Bilirubin 1.2 H AST 23 ALT 17 Alkaline Phosphatase 61 Total Protein 6.6 Albumin 3.7 Assessment/Plan POD #1 C5 Corpectomy & C4-C7 ACDF Morbid Obesity OSAS Plan: O2 as needed Neuro checks Pain control Incentive Spirometry VTE prophylaxis PO as tolerated Disposition per surgery Dr Dotson
[2017-09-05 13:32] VITALS: BMI 46.6
[2017-09-05 13:39] VITALS: PULSE 64
[2017-09-05] MEDS ORDERED: HEPARIN NA (PORCINE) 5,000 UNITS/ML 1ML VIAL SQ SCH (14:00)
--- NOTE | 2017-09-05 15:14 | DS ---
Physical Exam: SUBJECTIVE: Patient seen and examined OBJECTIVE: Vital Signs Period Temp Pulse Resp BP Sys/Heard Pulse Ox Last 24 Hr 99.0 F-99.9 F 55-68 14-24 115-129/70-82 96-100 PHYSICAL EXAM GENERAL: The patient is awake, alert, and fully oriented, in no acute distress. HEAD: Normal with no signs of trauma. EYES: PERRL, extraocular movements intact, sclera anicteric, conjunctiva clear. ENT: Ears normal, nares patent, oropharynx clear without exudates, moist mucous membranes. NECK: Trachea midline, full range of motion, supple. LUNGS: Breath sounds equal, clear to auscultation bilaterally, no wheezes, no crackles, no accessory muscle use. HEART: Regular rate and rhythm, S1, S2 without murmur, rub or gallop. ABDOMEN: Soft, nontender, nondistended, normoactive bowel sounds, no guarding, no rebound, no hepatosplenomegaly, no masses. EXTREMITIES: 2+ pulses, warm, well-perfused, no edema. NEUROLOGICAL: Cranial nerves II through XII grossly intact. Normal speech, gait not observed. PSYCH: Normal mood, normal affect. SKIN: Warm, dry, normal turgor, no rashes or lesions noted. LABS Laboratory Results - last 24 hr 09/05/17 09/05/17 05:40 05:40 WBC 10.7 H RBC 4.67 Hgb 14.8 Hct 41.8 MCV 89.5 MCH 31.6 MCHC 35.3 RDW 12.5 Plt Count 202 MPV 8.4 Sodium 142 Potassium 4.4 Chloride 105 Carbon Dioxide 33 H Anion Gap 4 L BUN 10 D Creatinine 1.0 Creat Clearance w eGFR > 60 Random Glucose 104 D Calcium 8.0 L Total Bilirubin 1.2 H AST 23 ALT 17 Alkaline Phosphatase 61 Total Protein 6.6 Albumin 3.7 HOSPITAL COURSE: Date of Admission:09/03/17 Date of Discharge: 09/05/17 Discharge Summary Reason For Visit: CERVICAL DISC DISORDER Condition: Stable - Instructions Diet, Activity, Other Instructions: Please return to the ED for any new, persistent, or worsening symptoms. Follow up with your PCP in 1 week Follow up with orthopedics in 2 weeks, referral enclosed Keep dressing dry and in place Referrals: Burt Levy MD [Staff Physician] - Disposition: HOME - Home Medications Comprehensive Discharge Medication List: Ambulatory Orders Cyclobenzaprine HCl [Flexeril 10 mg] 10 mg PO BID PRN 04/13/17 Acetaminophen [Tylenol] 650 mg PO PRN PRN 04/16/17 Loratadine [Claritin] 10 mg PO PRN PRN 09/03/17 HYDROmorphone [Dilaudid -] 2 mg PO Q8H #15 tablet MDD 3 09/05/17 - Discharge Referral Referred to [facility] Med P.C.: No
[2017-09-05 15:27] VITALS: BP 117/56; TEMP 98.8
--- NOTE | 2017-09-06 11:20 | PATH ---
Surgical Pathology Report Patient Name: SARA MANDEL [facility]. Rec. #: [id number] /Age/Gender: 1970 (Age: 47) / M Account: [id number] Location: [facility] Taken: 09/03/2017 Received: 09/04/2017 Reported: 09/06/2017 Physicians: Burt Levy M.D. Specimen(s) Received DISC C4-C7 Clinical History Cervical disc disorder Final Diagnosis DISC, C4-7, DISCECTOMY: INTERVERTEBRAL DISC TISSUE. Electronically Signed Denise Jordan M.D. Gross Description Received in formalin labeled "disc C4-C7," is a 3.5 x 3.2 x 0.5 cm aggregate of thompson fragments of fibrocartilaginous tissue. A inside technical sales representative portion is submitted in one cassette. /09/04/2017 [facility]
== END 2017-09-05 22:15 | disposition home or self-care (01) | DRG 472 ==
LOC: JSAMEDAYSX 09:04 → EDSTATUS 11:00 → JICU 23:23
PROVIDERS: ADMIT Orthopaedic Surgery Orthopaedic Surgery of the Spine; ATTEND Nurse Practitioner Acute Care
PROC: 0RG20A0 Fusion of 2 or more Cervical Vertebral Joints with Interbody Fusion Device, Anterior Approach, Anterior Column, Open Approach (ICD-10-PCS; 2017-09-03)
PROC: 0RG2070 Fusion of 2 or more Cervical Vertebral Joints with Autologous Tissue Substitute, Anterior Approach, Anterior Column, Open Approach (ICD-10-PCS; 2017-09-03)
PROC: 0RB30ZZ Excision of Cervical Vertebral Disc, Open Approach (ICD-10-PCS; principal; 2017-09-03 11:00)
DX: M48.02 Spinal stenosis, cervical region (principal); M47.12 Other spondylosis with myelopathy, cervical region; Z68.42 Body mass index [BMI] 45.0-49.9, adult; M40.292 Other kyphosis, cervical region; E66.01 Morbid (severe) obesity due to excess calories; G47.33 Obstructive sleep apnea (adult) (pediatric)
CPT/HCPCS: 36415; 71045-TC-FY; 76000-TC-FY; 80048; 80053; 85027; 86850; 86891; 86900; 86901; 88304-TC; 94002; 94010; 94660; 94760; 97116-GP; 97161-GP; J1644